=== PATIENT | male | born 1965 | race African-American/Black ===

== ENCOUNTER 2018-03-12 18:42 | Inpatient (IN) | payer OTHER ==
[~2018-03-12] VITALS: Ht 175.3 cm; Wt 122.4 kg
[2018-03-12 19:39] LABS: BASOPHIL (%) 0.2 % (0-1); EOSINOPHIL (%) 0.1 % (0-5); HEMATOCRIT 45.6 % (38.0-50.0); IMMATURE GRANULOCYTE (%) 0.3 % (0.0-0.7); LYMPHOCYTE (%) 31.5 % (15-42); LYMPHOCYTE COUNT 3.3 K/uL (1.0-2.8); MCH 27.4 PG (29.0-34.0); MCHC 32.9 G/DL (30.0-36.0); MCV 83.2 FL (86-99); MONOCYTE (%) 9.5 % (3-12); NEUTROPHIL (%) 58.4 % (45-76); NEUTROPHIL COUNT 6.1 K/uL (1.8-6.4); PLATELET COUNT 244 K/uL (156-360); RBC DIS.WIDTH-CV 13.6 % (11.8-14.6); RBC DIS.WIDTH-SD 41.9 % (39-53); RED BLOOD COUNT 5.48 M/uL (4.00-5.50); WHITE BLOOD COUNT 10.4 K/uL (4.1-10.2)
[2018-03-12 19:51] LABS: ALBUMIN 4.6 g/dL (3.2-4.8); CHLORIDE 105 mEq/L (99-109); POTASSIUM 4.6 mEq/L (3.7-5.4); SODIUM 140 mEq/L (136-147)
[2018-03-12 19:53] LABS: GLUCOSE 87 mg/dL (70-99); TOTAL PROTEIN 7.9 g/dL (6.4-8.3)
[2018-03-12 19:55] LABS: TOTAL BILIRUBIN 0.7 mg/dL (0.0-1.0)
[2018-03-12 19:56] LABS: SERUM ETHYL ALCOHOL < 10 mg/dL
[2018-03-12 19:57] LABS: ALKALINE PHOSPHATASE 56 IU/L (3-129); CREATININE 1.3 mg/dL (0.6-1.3)
[2018-03-12 19:58] LABS: AST (GOT) 31 IU/L (2-34); UREA NITROGEN (BUN) 20 mg/dL (9-23)
[2018-03-12 20:00] LABS: ALT (GPT) 20 IU/L (3-49); GFR ESTIMATE (CALCULATED) > 59 mL/min/ (58.99-99999)
[2018-03-12 20:06] LABS: AMPHETAMINE NEGATIVE (500 ng/mL); COCAINE PRESUMPTIVE POSITIVE (150 ng/mL); METHAMPHETAMINE NEGATIVE (500 ng/mL); OPIATES (MORPHINE) NEGATIVE (100 ng/mL); PHENCYCLIDINE NEGATIVE (25 ng/mL); THC CANNABINOIDS NEGATIVE (50 ng/mL)
[2018-03-12 20:07] LABS: BARBITURATES NEGATIVE (200 ng/mL); BENZODIAZEPINES PRESUMPTIVE POSITIVE (150 ng/mL); BUPRENORPHINE NEGATIVE (10 ng/mL); METHADONE NEGATIVE (200 ng/mL); OXYCODONE NEGATIVE (100 ng/mL); PROPOXYPHENE NEGATIVE (300 ng/mL); TRICYCLIC ANTIDEPRESSANTS NEGATIVE (300 ng/mL)
[2018-03-12 20:40] LABS: BENZODIAZEPINES, URINE SCREEN Negative (200 ng/mL)
[2018-03-12 23:01] VITALS: BP 119/66
[2018-03-13 08:02] VITALS: BP 110/71
[2018-03-13 15:55] VITALS: BP 123/71
[2018-03-14 07:52] VITALS: BP 104/56
[2018-03-14 15:42] VITALS: BP 118/79
[2018-03-15 08:02] VITALS: BP 104/58
[2018-03-15 16:02] VITALS: BP 134/63
[2018-03-16 08:12] VITALS: BP 119/75
[2018-03-16 16:58] VITALS: BP 125/66
[2018-03-17 08:05] VITALS: BP 149/86
[2018-03-17 15:57] VITALS: BP 133/82
[2018-03-18 07:50] VITALS: BP 131/74
[2018-03-18] MEDS ORDERED: LAMOTRIGINE25 MG PO (09:55)
[2018-03-18] MEDS ORDERED: CITALOPRAM HBR20 MG PO (09:55)
== END 2018-03-18 12:34 | disposition home or self-care (01) | DRG 885 ==
LOC: EME 18:42 → 1WEST 21:04 → EDOF 21:04 → 1WEST 21:04 → ENRESERV 21:40 → 1WEST 22:34
PROVIDERS: Emergency Medicine
DX: F31.4 Bipolar disorder, current episode depressed, severe, without psychotic features (principal); R45.851 Suicidal ideations; F10.20 Alcohol dependence, uncomplicated; F14.20 Cocaine dependence, uncomplicated; Z66 Do not resuscitate; F17.200 Nicotine dependence, unspecified, uncomplicated; Z91.14 Patient's other noncompliance with medication regimen
CPT/HCPCS: 80053; 84999; 85025; 90837; 97165 GO; 99281; 99285; G0480; Q0177